=== PATIENT | male | born 1990 | race Caucasian/White ===

== ENCOUNTER 2016-11-11 01:19 | Emergency (ER) | payer OTHER ==
[2016-11-11 01:28] VITALS: RESP 16
--- NOTE | 2016-11-11 01:52 | EDPHY ---
H & P Stated Complaint: recent dx of lumbar herniated disc, difficult defecation, thinks related Time Seen by Provider: 11/11/16 01:33 HPI/ROS: Chief Complaint: Back pain, new numbness HPI: 26-year-old male with a known L5-S1 disc herniation for several years. Had worsening with symptoms and had an MRI in the 15th of last month. Patient has been having Physical therapy in been taking anti-inflammatories. He has been having worsening perirectal tingling for the past few days. Had a gastrointestinal bug 4 days ago and has had diarrhea for 2 days which has since resolved. Yesterday morning woke with some worsening perirectal tingling pain going down his right leg and woke up yesterday morning being with a painful erection which last about 5 minutes. Patient has been continuing to have persistent perirectal tingling. He is also noted to have some constipation feels he is unable to pass stool adequately for the last 2 days. No abdominal pain. No back pain. No difficulty urinating. Patient woke again this morning with a painful erection which is unusual for him. He is concerned about the possibility of worsening back disease. No fevers or chills. No history of IV drug abuse. No new weakness. He is ambulating without significant difficulty. ROS: 10 point Review of Systems is negative except as noted in the HPI. PMH: L5-S1 disc herniation Social History: No smoking, occasional alcohol, no recreational drug use Family History: non-contributory Physical Exam: Gen: Awake, Alert, No Distress HEENT: Nose: no rhinorrhea Eyes: PERRLA, EOMI Mouth: Moist mucosa Neck: Supple, no JVD Chest: nontender, lungs clear to auscultation Heart: S1, S2 normal, no murmur Abd: Soft, non-tender, no guarding Back: no CVA tenderness, no midline tenderness Ext: no edema, non-tender Skin: no rash Neuro: CN II-XII intact, Strength 5/5 in bilateral upper and lower extremities, patient has normal anal wink, is complaining of decreased sensation bilateral perirectal area right greater than left. Also complaining of slightly decreased sensation on the right inner thigh compared to left which is new. Sensations intact and equal bilaterally below the knee. - Medical/Surgical History Hx Asthma: No Hx Chronic Respiratory Disease: No Hx Diabetes: No Hx Cardiac Disease: No Hx Renal Disease: No Hx Cirrhosis: No Hx Alcoholism: No Hx HIV/AIDS: No Hx Splenectomy or Spleen Trauma: No Other PMH: mild IBS, Hiatal Hernia, herniated lumbar disc, orif L forearm - Social History Smoking Status: Never smoked Constitutional: Initial Vital Signs Temperature (C) 36.9 C 11/11/16 01:22 Heart Rate 61 11/11/16 01:22 Respiratory Rate 16 11/11/16 01:22 Blood Pressure 148/90 H 11/11/16 01:22 O2 Sat (%) 97 11/11/16 01:22 O2 Delivery Mode Room Air Allergies/Adverse Reactions: ibuprofen Adverse Reaction (Verified 11/11/16 01:30) Home Medications: Medication Instructions Recorded NK [No Known Home Meds] 11/11/16 Medical Decision Making - Diagnostics Imaging Results: MRI of the lumbar spine shows some mild herniation at L5-S1 primarily at the midline affecting the S1 nerve root. This is unchanged from an MRI from 2016. Interpreted by Dr. Hooper. ED Course/Re-evaluation: 26-year-old male with a known L5-S1 disc herniation now presenting with new worsening neurologic symptoms. He is afebrile. No risk factors for epidural abscess or infection. Patient will need MRI to evaluate worsening lumbar disc disease. MRI unchanged compared to that of October [address] Hooper. No acute central spinal pathology. Patient is ambulating without difficulty. Will discharge with his already arranged follow-up with Dr. Lopez in 5 days. Departure - Departure Disposition: Home, Routine, Self-Care Clinical Impression: Back pain, Constipation Condition: Good Instructions: Back Pain (ED), Constipation (ED) Additional Instructions: Follow up with Dr. Lopez on as scheduled. Return to the emergency depart for increasing pain, numbness, weakness, difficulty urinating, or any other concerns. Referrals: KALI HAMILTON [Other] - As per Instructions Joaquim Lopez MD [Medical Doctor] - As per Instructions
[2016-11-11 03:47] VITALS: BP 119/67; PULSE 73; TEMP 97.9; O2SAT 96
== END 2016-11-11 03:46 | disposition home or self-care (01) ==
DX: K59.00 Constipation, unspecified (principal)

== ENCOUNTER 2018-03-18 04:18 | Emergency (ER) | payer OTHER ==
[2018-03-18] MEDS ORDERED: HYDROmorphONE/DILAUDID 2 MG/ML INJ IVP ONE (04:33)
[2018-03-18] MEDS ORDERED: NS 1,000 ML IV ONE ×2 (04:33→05:33)
[2018-03-18] MEDS ORDERED: ONDANSETRON 4 MG/2 ML VIAL IVP ONE (04:33)
--- NOTE | 2018-03-18 04:35 | EDPHY ---
H & P Stated Complaint: abd pain, nausea Time Seen by Provider: 03/18/18 04:34 HPI/ROS: HPI CHIEF COMPLAINT: Epigastric abdominal pain. HISTORY OF PRESENT ILLNESS: 27-year-old male, otherwise healthy, presents emergency room with epigastric abdominal pain. Waxes and wanes from 4/10 to 10 and 10. Burning and sharp stabbing pain. Does not radiate. No chest pain or shortness of breath. No back pain. No trauma. Patient reports started around midnight. [place] very similar to his previous episode when he had gallstones causing pain. Denies vomiting but does have nausea. No lower abdominal pain. No urinary symptoms. No testicular pain. Denies chest pain or shortness of breath. It is now 430 in the morning presents for ongoing pain. Does report that he has been somewhat fatigued and sleeping more often than normal. No recent fever. Past Medical History: IBS, degenerative disc disease previous ER visit for gallstones Past Surgical History: Arm surgery. Social History: Denies drugs alcohol tobacco. Family History: Noncontributory ROS REVIEW OF SYSTEMS: 10 Systems were reviewed and negative with the exception of the elements mentioned in the history of present illness. Exam Constitutional nontoxic, no acute distress, triage nursing summary reviewed, vital signs reviewed, awake/alert. Eyes normal conjunctivae and sclera, EOMI, PERRLA. HENT normal inspection, atraumatic, moist mucus membranes, no epistaxis, neck supple/ no meningismus, no raccoon eyes. Respiratory clear to auscultation bilaterally, normal breath sounds, no respiratory distress, no wheezing. Cardiovascular rate normal, regular rhythm, no murmur, no edema, distal pulses normal. Gastrointestinal mild tender palpation right upper quadrant epigastric, reproducible on exam, no rebound, no guarding, normal bowel sounds, no distension, no pulsatile mass. Genitourinary no CVA tenderness. Musculoskeletal no midline vertebral tenderness, full range of motion, no calf swelling, no tenderness of extremities, no meningismus, good pulses, neurovascularly intact. Skin pink, warm, & dry, no rash, skin atraumatic. Neurologic awake, alert and oriented x 3, AAOx3, moves all 4 extremities equally, motor intact, sensory intact, CN II-XII intact, normal cerebellar, normal vision, normal speech. Psychiatric normal mood/affect. Heme/Lymph/Immune no lymphadenopathy. Differential diagnosis includes but is not limited to and in no particular order : Bowel obstruction, appendicitis, gallbladder disease, diverticulitis, colitis , enteritis, perforated viscus, gastritis, GERD, esophagitis, urinary tract infection, pyelonephritis, kidney stones Medical Decision Making: Plan for this patient IV establishment with IV fluid bolus, 4 mg IV Zofran for nausea, 1 mg IV Dilaudid for pain control basic blood work, lipase, LFTs, CBC and chemistry. Gentle IV fluids. Re-evaluate. Ultrasound right upper quadrant. Re-evaluation: Ultrasound right upper quadrant shows gallstones but no evidence of acute cholecystitis. Called to me by Dr. Cleaning. 0531: Patient re-evaluated this time is resting comfortably abdomen remained soft nontender. Feels much better after 1 mg IV Dilaudid IV fluids. I believe his right upper quadrant epigastric pain is most likely related to gallstones. His ultrasound is very similar to his previous ultrasound in November. I do recommend he follows up with surgery outpatient. Additionally return precautions discussed return if worsening abdominal pain, fever, vomiting. On re-examination at 5:30 a.m. He does not have any lower abdominal pain. No right lower quadrant pain. The pain is located right upper quadrant epigastric. Ultrasound reveals gallstones without any evidence of acute cholecystitis. Troponin negative. Patient's vital signs are stable. Afebrile. He is not vomiting. Feels better after 1 mg Dilaudid IV fluids. Discussed return precautions with him and his significant other at bedside. Additionally discussed blood work results with him. Liver enzymes slightly elevated recommend recheck with his primary care doctor. Additionally noted patient's platelets are slightly low. I have discussed this with him. Source: Patient - Personal History Current Tetanus Diphtheria and Acellular Pertussis (TDAP): Unsure - Medical/Surgical History Hx Asthma: No Hx Chronic Respiratory Disease: No Hx Diabetes: No Hx Cardiac Disease: No Hx Renal Disease: No Hx Cirrhosis: No Hx Alcoholism: No Hx HIV/AIDS: No Hx Splenectomy or Spleen Trauma: No Other PMH: mild IBS, Hiatal Hernia, herniated lumbar disc, orif L forearm - Social History Smoking Status: Never smoked Constitutional: Initial Vital Signs Temperature (C) 36.6 C 03/18/18 04:21 Heart Rate 84 03/18/18 04:21 Respiratory Rate 20 03/18/18 04:21 Blood Pressure 125/73 H 03/18/18 04:21 O2 Sat (%) 99 03/18/18 04:21 O2 Delivery Mode Room Air Allergies/Adverse Reactions: No Known Allergies Allergy (Unverified 03/18/18 04:21) Home Medications: Medication Instructions Recorded Cefdinir 03/18/18 Medical Decision Making - Data Points Laboratory Results: Laboratory Results 03/18/18 04:35 03/18/18 04:35 03/18/18 03/18/18 03/18/18 04:44 04:39 04:35 WBC RBC Hgb Hct MCV MCH MCHC RDW Plt Count MPV Neut % (Auto) Lymph % (Auto) [place] % (Auto) Eos % (Auto) Baso % (Auto) Nucleat RBC Rel Count Absolute Neuts (auto) Absolute Lymphs (auto) Absolute Monos (auto) Absolute Eos (auto) Absolute Basos (auto) Absolute Nucleated RBC Immature Gran % Immature Gran # RBC/WBC/PLT Morphology Platelet Estimate VBG Lactic Acid 1.1 mmol/L mmol/L (0.7-2.1) Sodium 137 mEq/L mEq/L (135-145) Potassium 3.4 mEq/L mEq/L (3.3-5.0) Chloride 101 mEq/L mEq/L (97-110) Carbon Dioxide 26 mEq/l mEq/l (22-31) Anion Gap 10 mEq/L mEq/L (6-14) BUN 15 mg/dL mg/dL (7-23) Creatinine 0.9 mg/dL mg/dL (0.7-1.3) Estimated GFR > 60 Glucose 107 mg/dL H mg/dL (70-100) Calcium 9.0 mg/dL mg/dL (8.5-10.4) Total Bilirubin 1.4 mg/dL mg/dL (0.1-1.4) Conjugated Bilirubin 0.4 mg/dL mg/dL (0.0-0.5) Unconjugated Bilirubin 1.0 mg/dL mg/dL (0.0-1.1) AST 74 IU/L H IU/L (17-59) ALT 114 IU/L H IU/L (21-72) Alkaline Phosphatase 105 IU/L IU/L (38-126) POC Troponin I 0.00 ng/mL ng/mL (0.00-0.08) Total Protein 6.9 g/dL g/dL (6.3-8.2) Albumin 4.2 g/dL g/dL (3.5-5.0) Lipase 149 IU/L IU/L (23-300) 03/18/18 04:35 WBC 5.46 10^3/uL 10^3/uL (3.80-9.50) RBC 4.99 10^6/uL 10^6/uL (4.40-6.38) Hgb 14.0 g/dL g/dL (13.7-17.5) Hct 39.8 % L % (40.0-51.0) MCV 79.8 fL L fL (81.5-99.8) MCH 28.1 pg pg (27.9-34.1) MCHC 35.2 g/dL g/dL (32.4-36.7) RDW 12.5 % % (11.5-15.2) Plt Count 127 10^3/uL L 10^3/uL (150-400) MPV 9.6 fL fL (8.7-11.7) Neut % (Auto) 27.5 % L % (39.3-74.2) Lymph % (Auto) 61.9 % H % (15.0-45.0) [place] % (Auto) 9.2 % % (4.5-13.0) Eos % (Auto) 0.5 % L % (0.6-7.6) Baso % (Auto) 0.7 % % (0.3-1.7) Nucleat RBC Rel Count 0.0 % % (0.0-0.2) Absolute Neuts (auto) 1.50 10^3/uL L 10^3/uL (1.70-6.50) Absolute Lymphs (auto) 3.38 10^3/uL H 10^3/uL (1.00-3.00) Absolute Monos (auto) 0.50 10^3/uL 10^3/uL (0.30-0.80) Absolute Eos (auto) 0.03 10^3/uL 10^3/uL (0.03-0.40) Absolute Basos (auto) 0.04 10^3/uL 10^3/uL (0.02-0.10) Absolute Nucleated RBC 0.00 10^3/uL 10^3/uL (0-0.01) Immature Gran % 0.2 % % (0.0-1.1) Immature Gran # 0.01 10^3/uL 10^3/uL (0.00-0.10) RBC/WBC/PLT Morphology TNP Platelet Estimate TNP VBG Lactic Acid Sodium Potassium Chloride Carbon Dioxide Anion Gap BUN Creatinine Estimated GFR Glucose Calcium Total Bilirubin Conjugated Bilirubin Unconjugated Bilirubin AST ALT Alkaline Phosphatase POC Troponin I Total Protein Albumin Lipase Medications Given: Discontinued Medications Hydromorphone HCl (Dilaudid) 1 mg IVP EDNOW ONE Stop: 03/18/18 04:34 Last Admin: 03/18/18 04:42 Dose: 1 mg Sodium Chloride (Ns) 1,000 mls @ 0 mls/hr IV EDNOW ONE; Wide Open PRN Reason: Protocol Stop: 03/18/18 04:34 Last Admin: 03/18/18 04:36 Dose: 1,000 mls Sodium Chloride (Ns) 1,000 mls @ 0 mls/hr IV ONCE ONE PRN Reason: Wide Open Stop: 03/18/18 05:34 Last Admin: 03/18/18 05:34 Dose: 1,000 mls Ondansetron HCl (Zofran) 4 mg IVP EDNOW ONE Stop: 03/18/18 04:34 Last Admin: 03/18/18 04:42 Dose: 4 mg Point of Care Test Results: Chemistry 03/18/18 04:39 POC Troponin I 0.00 ng/mL ng/mL (0.00-0.08) Departure - Departure Disposition: Home, Routine, Self-Care Clinical Impression: Gallstones Condition: Good Instructions: Biliary Colic (ED), Gallstones (ED) Additional Instructions: 1. [place] diet no spicy fatty greasy foods. 2. Follow up with surgery about your gallbladder 3. Return to the emergency room if you have worsening abdominal pain, fever, vomiting. 4. No alcohol. 5. Your liver enzymes were slightly elevated today. Recommend recheck and follow up with your primary care doctor. Referrals: NONE *PRIMARY CARE P,. [Primary Care Provider] - As per Instructions Elder Nava MD [Medical Doctor] - As per Instructions
[2018-03-18 04:44] LABS: PLATELET COUNT 127 10^3/uL (150-400)
[2018-03-18] MEDS ORDERED: LIDOCAINE 2% VISCOUS 15 ML UDCUP ONE (06:15)
[2018-03-18] MEDS ORDERED: MAG HYDROX/AL HYDROX/SIMETH 30 ML UDCUP ONE (06:15)
[2018-03-18] MEDS ORDERED: LIDOCAINE 2% VISCOUS 15 ML UDCUP PO ONE (06:20)
[2018-03-18] MEDS ORDERED: HYOSCYAMINE SULFATE 0.125 MG TAB PO ONE (06:20)
[2018-03-18] MEDS ORDERED: MAG HYDROX/AL HYDROX/SIMETH 30 ML UDCUP PO ONE (06:20)
[2018-03-18 06:35] VITALS: BP 118/72
== END 2018-03-18 06:42 | disposition home or self-care (01) ==
DX: K80.20 Calculus of gallbladder without cholecystitis without obstruction (principal); E86.9 Volume depletion, unspecified
CPT/HCPCS: 84484-PO; 96374; J1170; J2405